=== PATIENT | female | born 1945 | race African-American/Black ===

== ENCOUNTER 2017-05-29 09:25 | Outpatient (CLI) | payer MEDICARE, OTHER ==
--- NOTE | 2017-05-29 11:26 | MMO ---
BILATERAL DIGITAL SCREENING MAMMOGRAMS: Date: 05/29/17 This patient's mammogram was interpreted with the assistance of computer-aided detection. Comparison made with exams of 05/23/16, 11/03/14, and 11/04/13. FINDINGS: There are scattered fibroglandular densities with benign-appearing calcifications. No suspicious mas ses or calcifications are identified. IMPRESSION: BIRADS 2: Benign Finding(s) Annual mammographic screening is recommended. POS: [facility]
== END 2017-05-29 09:26 | disposition home or self-care (01) ==
LOC: MAMMO 09:25
PROVIDERS: ATTEND Internal Medicine
DX: Z12.31 Encounter for screening mammogram for malignant neoplasm of breast (principal)
CPT/HCPCS: 77067; G0202

== ENCOUNTER 2017-11-14 05:11 | Emergency (ER) | payer MEDICARE, OTHER ==
[2017-11-14 06:02] LABS: #Eosinphils 0.2 thou/uL (0.0-0.7); #Lymphocytes 1.8 thou/uL (1.20-3.40); #Monocytes 0.6 thou/uL (0.11-0.59); #Neutrophils 2.8 thou/uL (1.40-6.50); %Basophils 0.5 % (0.0-1.0); %Eosinophils 3.7 % (0.0-10.0); %Lymphocytes 32.5 % (21.0-51.0); %Monocytes 11.5 % (0.0-10.0); %Neutrophils 51.8 % (42.0-75.0); Hemoglobin 13.7 g/dL (12.0-16.0); Mean Corpuscular HGB CONC 33.3 g/dL (32.0-36.0); Mean Corpuscular Hemoglobin 32.3 pg (27.0-31.0); Mean Corpuscular Volume 96.9 fl (81.0-99.0); Platelet Count 250 thou/uL (130-400); RBC Distribution Width 13.1 % (11.5-14.5); Red Blood Cell (RBC) Count 4.23 mill/uL (4.20-5.40); White Blood Cell (WBC) Count 5.4 thou/uL (4.8-10.8)
[2017-11-14 06:30] LABS: ALT (SGPT) 11 U/L (8-55); AST (SGOT) 13 U/L (5-34); Albumin 3.8 g/dL (3.4-4.8); Alkaline Phosphatase 121 U/L (40-150); Anion Gap 10 mmol/L (10-20); BUN (Urea Nitrogen) 30 mg/dL (9.8-20.1); Bilirubin, Total 0.3 mg/dL (0.2-1.2); Calc. Creatinine Clearance 0 mL/min (70-130); Calcium 9.4 mg/dL (7.8-10.44); Carbon Dioxide 25 mmol/L (23-31); Chloride 107 mmol/L (98-107); Estimated GFR-MDRD 80; Globulin 3.1 g/dL (2.4-3.5); Glucose 97 mg/dL (80-115); Potassium 4.3 mmol/L (3.5-5.1); Protein, Total 6.9 g/dL (6.0-8.3); Sodium 138 mmol/L (136-145)
[2017-11-14 06:34] LABS: CKMB 0.6 ng/mL (0-6.6); Troponin I Less than 0.010 ng/mL (< 0.028)
[2017-11-14 07:07] LABS: CK (CPK) 92 U/L (29-168); Lipase 25 U/L (8-78)
[2017-11-14] MEDS ORDERED: Nitroglycerin 2% Ointment 1 INCH/1 GM Packet ONE (07:30)
--- NOTE | 2017-11-14 08:05 | RAD ---
1 VIEW CHEST: Date: 11/14/17 HISTORY: Dyspnea. COMPARISON: None. FINDINGS: Normal cardiac silhouette. Pulmonary vessels and hilum are normal. Costophrenic angles are clear. No consolidation or mass. No pneumothorax or osseous abnormalities. IMPRESSION: No acute cardiopulmonary process. POS: OFF
--- NOTE | 2017-11-14 08:06 | ULT ---
PRELIMINARY REPORT/[facility]/EMERGENTY AFTER-HOURS PROCEDURE US Duplex Left Lower Extremity Veins EXAM DATE/TIME: Exam ordered 11/14/2017 6:03 AM CLINICAL HISTORY: 72 years old, female; Pain and signs and symptoms; Edema, localized; Lower extremity, left; Leg, lowe r TECHNIQUE: Real-time duplex ultrasound scan of the left lower extremity veins integrating B-mode two dimensional vascular structure, Doppler spectral analysis, color flow Doppler imaging and compression. COMPARISON: No relevant prior studies available. FINDINGS: Deep veins: Normal. No DVT in the visualized common femoral, femoral, proximal deep femoral, poplitea l or calf veins. The veins demonstrate normal color flow, are normally compressible, with normal phas ic flow and/or augmentation response. Superficial veins: Normal. No thrombus in the visualized great saphenous vein. Soft tissues: There is a complex posterior LEFT knee fluid collection measuring approximately 5.3 x 1 .5 x 2.3 cm possibly representing a Vega's cyst. IMPRESSION: 1. No LEFT lower extremity acute DVT. 2. There is a complex posterior LEFT knee fluid collection measuring approximately 5.3 x 1.5 x 2.3 cm possibly representing a Vega's cyst. Thank you for allowing us to participate in the care of your patient. Dictated and Authenticated by: Shashi Edwards MD 11/14/2017 6:45 AM Central Time ([place] & [place]) ULTRASOUND WITH DOPPLER DUPLEX VENOUS LOWER EXTREMITY LEFT: HISTORY: 72-year-old female with left lower extremity edema. TECHNIQUE: Color flow Doppler, spectral waveform analysis of pulsed Doppler, and cagle-scale imaging with eliz fela and augmentation, were used to evaluate the left common femoral, femoral, popliteal, posterior t ibial, and superficial femoral, veins; and the proximal portions of the profunda femoral and greater saphenous, veins. FINDINGS: There is normal compressibility, demonstration of blood flow by color Doppler and pulsed Doppler, and response to augmentation, in all interrogated veins. There is a 5.5 x 1.5 x 2.5 cm heterogeneously hypoechoic mass in the posterior aspect of the left kne e. 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 IMPRESSION: 1. No deep vein thrombosis in the left lower extremity. 2. 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 Synovial sarcoma is uncommon and therefo re much less likely, but further evaluation with MRI of the knee with and without contrast is recomme nded (unless there are contraindications to MRI). Code QA Code T jn POS: [facility]
[2017-11-14] MEDS ORDERED: Acetaminophen 325 MG TAB ONE (10:37)
[2017-11-14 12:15] LABS: Troponin I Less than 0.010 ng/mL (< 0.028)
[2017-11-14] MEDS ORDERED: Metoclopramide 10 MG/10 ML UDCUP ONE (12:17)
[2017-11-14] MEDS ORDERED: Fentanyl 100 MCG/2 ML VIAL ONE (14:29)
== END 2017-11-14 14:46 | disposition short-term general hospital (02) ==
LOC: ERS 05:11
DX: I20.0 Unstable angina (principal); I10 Essential (primary) hypertension; E78.5 Hyperlipidemia, unspecified; G43.909 Migraine, unspecified, not intractable, without status migrainosus; Z79.899 Other long term (current) drug therapy
CPT/HCPCS: 36415; 71045; 80053; 82553; 83690; 83880; 84484; 85025; 85379; 93005; 96361; 96374; J3010

== ENCOUNTER 2018-04-21 11:23 | Observation (INO) | payer MEDICARE, OTHER ==
[2018-04-21 12:19] LABS: #Eosinphils 0.5 thou/uL (0.0-0.7); #Lymphocytes 2.2 thou/uL (1.20-3.40); #Monocytes 0.7 thou/uL (0.11-0.59); #Neutrophils 3.6 thou/uL (1.40-6.50); %Basophils 0.6 % (0.0-1.0); %Eosinophils 6.8 % (0.0-10.0); %Lymphocytes 30.7 % (21.0-51.0); %Monocytes 10.4 % (0.0-10.0); %Neutrophils 51.6 % (42.0-75.0); Mean Corpuscular HGB CONC 33.3 g/dL (32.0-36.0); Mean Corpuscular Hemoglobin 32.8 pg (27.0-31.0); Mean Corpuscular Volume 98.3 fL (78.0-98.0); Mean Platelet Volume 8.1 fL (7.4-10.4); Platelet Count 158 thou/uL (130-400); RBC Distribution Width 13.6 % (11.5-14.5); Red Blood Cell (RBC) Count 4.28 mill/uL (4.20-5.40)
[2018-04-21 12:38] LABS: ALT (SGPT) 11 U/L (8-55); AST (SGOT) 17 U/L (5-34); Albumin 3.8 g/dL (3.4-4.8); Alkaline Phosphatase 88 U/L (40-150); Anion Gap 13 mmol/L (10-20); BUN (Urea Nitrogen) 22 mg/dL (9.8-20.1); Bilirubin, Total 0.3 mg/dL (0.2-1.2); CK (CPK) 96 U/L (29-168); Calc. Creatinine Clearance 0 mL/min (70-130); Calcium 9.2 mg/dL (7.8-10.44); Carbon Dioxide 22 mmol/L (23-31); Chloride 109 mmol/L (98-107); Estimated GFR-MDRD 66; Globulin 3.2 g/dL (2.4-3.5); Glucose 101 mg/dL (80-115); Lipase 24 U/L (8-78); Potassium 3.7 mmol/L (3.5-5.1); Sodium 140 mmol/L (136-145)
[2018-04-21 12:42] LABS: CKMB 0.7 ng/mL (0-6.6); Troponin I Less than 0.010 ng/mL (< 0.028)
[2018-04-21] MEDS ORDERED: Nitroglycerin 2% Ointment 1 INCH/1 GM Packet ONE (13:28)
--- NOTE | 2018-04-21 13:43 | RAD ---
PORTABLE AP CHEST: Date: 04/21/18 HISTORY: Back pain and left arm pain. Diaphoresis. COMPARISON: 11/14/17. FINDINGS: Cardiac silhouette and pulmonary vasculature are within normal limits. Again noted is mild blunting o f the left lateral costophrenic angle, which may be related to mild pleural and parenchymal scarring. Lungs are otherwise clear. There is minimal symmetric biapical pleural thickening present. There has been no interval change from the prior study. IMPRESSION: 1. No acute cardiopulmonary process. 2. Probable mild pleural and parenchymal scarring left lung base. POS: [facility]
[2018-04-21] MEDS ORDERED: ADENOSINE 60 MG/20 ML VIAL ONE (14:58)
[2018-04-21 15:11] VITALS: BMI 31.4
[2018-04-21 15:34] LABS: Troponin I Less than 0.010 ng/mL (< 0.028)
[2018-04-21] MEDS ORDERED: Acetaminophen 325 MG TAB PO PRN (15:34)
[2018-04-21] MEDS ORDERED: Enoxaparin Sodium 40 MG/0.4 ML SYRINGE SC SCH (15:34)
[2018-04-21] MEDS ORDERED: Acetaminophen 650 MG Suppository PR PRN (15:34)
[2018-04-21] MEDS ORDERED: HYDROcodone/Acetaminophen 5/325 mg Tablet PO PRN (15:34)
[2018-04-21 16:01] LABS: CKMB 0.7 ng/mL (0-6.6)
[2018-04-21] MEDS ORDERED: Fioricet 325/50/40 mg Tablet PO PRN (19:35)
[2018-04-21] MEDS ORDERED: Divalproex Sodium 250 MG (DR) TAB PO SCH (21:00)
[2018-04-21] MEDS ORDERED: Atorvastatin Calcium 10 MG TAB PO SCH (21:00)
[2018-04-21] MEDS: Famotidine 20 MG TAB PO SCH (21:00)
[2018-04-21] MEDS: Nitroglycerin 2% Ointment 1 INCH/1 GM Packet TOP SCH (21:02)
[2018-04-22 00:09] LABS: CKMB 0.6 ng/mL (0-6.6); Troponin I Less than 0.010 ng/mL (< 0.028)
[2018-04-22] MEDS: Nitroglycerin 2% Ointment 1 INCH/1 GM Packet TOP SCH ×2 (04:22→14:21)
[2018-04-22 05:11] LABS: #Basophils 0.1 thou/uL (0.0-0.2); #Eosinphils 0.6 thou/uL (0.0-0.7); #Lymphocytes 2.6 thou/uL (1.20-3.40); #Monocytes 0.6 thou/uL (0.11-0.59); #Neutrophils 2.5 thou/uL (1.40-6.50); %Basophils 0.8 % (0.0-1.0); %Eosinophils 9.5 % (0.0-10.0); %Lymphocytes 40.4 % (21.0-51.0); %Monocytes 9.9 % (0.0-10.0); %Neutrophils 39.4 % (42.0-75.0); Hemoglobin 13.5 g/dL (12.0-16.0); Mean Corpuscular HGB CONC 32.5 g/dL (32.0-36.0); Mean Corpuscular Volume 98.4 fL (78.0-98.0); Mean Platelet Volume 8.2 fL (7.4-10.4); Platelet Count 165 thou/uL (130-400); RBC Distribution Width 13.5 % (11.5-14.5); Red Blood Cell (RBC) Count 4.21 mill/uL (4.20-5.40); White Blood Cell (WBC) Count 6.4 thou/uL (4.8-10.8)
[2018-04-22 05:28] LABS: Anion Gap 13 mmol/L (10-20); BUN (Urea Nitrogen) 20 mg/dL (9.8-20.1); Calc. Creatinine Clearance 66 mL/min (70-130); Calcium 8.9 mg/dL (7.8-10.44); Carbon Dioxide 23 mmol/L (23-31); Cardiac Risk 3.6 (Less than 4.5); Chloride 109 mmol/L (98-107); Cholesterol 155 mg/dl (< 200 Desired); Estimated GFR-MDRD 70; Glucose 96 mg/dL (80-115); HDL Cholesterol 43 mg/dL (>60 Neg Risk); LDL Cholesterol, Calculated 80 mg/dL; Magnesium 2.2 mg/dL (1.6-2.6); Potassium 3.9 mmol/L (3.5-5.1); Sodium 141 mmol/L (136-145); Triglycerides 158 mg/dL (Less than 150)
[2018-04-22] MEDS ORDERED: Levothyroxine Sodium 112 MCG TAB PO SCH (06:00)
[2018-04-22] MEDS ORDERED: Amlodipine 10 MG TAB PO SCH (09:00)
[2018-04-22] MEDS: Famotidine 20 MG TAB PO SCH (09:16)
[2018-04-22 12:54] VITALS: BP 137/62; TEMP 98.2
--- NOTE | 2018-04-22 15:22 | NM ---
MYOCARDIAL PERFUSION SCAN WITH SPECT IMAGIN04/22/18 HISTORY: Chest pain. The examination is performed using 32.1 millicuries 99m technetium Sestamibi on stress and 10.1 yi curies on resting images. This shows fairly normal distribution of the radiopharmaceutical. No signs of ischemic or scar. WALL MOTION: There is symmetric contractility to the ventricle. LEFT VENTRICULAR EJECTION FRACTION: The calculated left ventricular ejection fraction is 80%. IMPRESSION: Unremarkable myocardial perfusion scan. POS: [facility]
--- NOTE | 2018-04-23 12:44 | SS ---
DATE OF ADMISSION: 04/21/2018 DATE OF DISCHARGE: 04/22/2018 PRIMARY CARE PHYSICIAN: Colette Park M.D. DISCHARGE DIAGNOSES: 1. Chest pain. 2. Hypertension. 3. Hypothyroidism, surgical. 4. Hyperlipidemia. 5. Migraine headaches. 6. Essential hypertension. CONSULTATIONS: None. PROCEDURES: Cardiolite stress test 04/22/2018 showed negative EKG and negative images for reversible or induced ischemia. HISTORY AND PHYSICAL: Ms. Valente is a 73-year-old female with a history of hypothyroidism, hyperten fela, history of lung mass, seizure disorder and hyperlipidemia who presents to the Emergency Departm ent for chest pain. She describes the pain as a sharp stabbing pain in the center of her chest, wors e with deep inspiration and palpation that radiates up into her bilateral arms and at the left side o f her neck. She is not having shortness of breath, diaphoresis or nausea. She never had a cardiac w orkup or heart catheterization. When she presented to the Emergency Department, her labs were negative. She did have HEART score андрей t was elevated for risk and so we were called for admission. On my evaluation, the patient had no further chest pain. She is feeling much better and had no compl aints. PAST MEDICAL HISTORY: 1. Hypertension. 2. Hyperlipidemia. 3. Migraines. 4. Hypothyroidism. 5. History of lung mass. PAST SURGICAL HISTORY: Includes, 1. Thyroidectomy. 2. Foot surgery. 3. Lung mass removal. SOCIAL HISTORY: Negative for habits x3. ALLERGIES: NKDA. FAMILY HISTORY: Negative for clotting or bleeding disorder. No immune dysfunction. REVIEW OF SYSTEMS: All systems reviewed and negative except as stated per HPI. PHYSICAL EXAMINATION: VITAL SIGNS: Temperature in the Emergency Department was 98.3 with a pulse of 79, blood pressure 130 /74, respiratory rate 18, satting 97% on room air. GENERAL: She is awake. She is alert. She is oriented x3. She is a well-developed, well-nourished, elderly female, who appears to be in no acute distress. HEENT: Normocephalic, atraumatic. Pupils equal, round and reactive to light bilaterally. Mucous me mbranes are moist. There are no visible lesions. No thrush. NECK: Supple. There is no lymphadenopathy, JVD or thyromegaly. Normal carotid upstrokes. There ar e no bruits. CHEST: Lungs are clear. She has good air movement. Symmetrical chest excursion. No wheezes, no ra les, no rhonchi. She has had tenderness in the parasternal area to palpation. ABDOMEN: Soft. It is nontender and nondistended. Good bowel sounds in all 4 quadrants. There is n o rebound, rigidity or guarding. EXTREMITIES: Show no signs of clubbing and no edema. She has good range of motion. MUSCULOSKELETAL: Normal to inspection. Large joints appear normal. There is no inflammation or pal pable effusions. SKIN: Warm, moist and well perfused. There are no rashes and no lesions. NEUROLOGIC: Cranial nerves II-XII are grossly intact. She has no focal neurologic deficits and norm al speech pattern. HOSPITAL COURSE: The patient was seen and examined by me on admission in the Emergency Department. LABORATORY DATA: Showed a CBC to be normal and a CMP to be normal. Her CK-MB was normal at 0.7. Tr oponin I was undetectable. Second set showed her troponin I to be still undetectable and CK-MB stabl e at 0.7. The patient was placed in observation overnight. Serial cardiac biomarkers were obtained that were a ll negative and undetectable. She was subjected to a Cardiolite stress test the next morning that wa s unremarkable and she was subsequently discharged home with outpatient followup. The patient was seen and examined on the day of discharge also. Disposition and discharge plan was discussed with the patient [id number] at the bedside. DISCHARGE MEDICATIONS: New medications, none. Home medications to continue, 1. Divalproex 250 mg p.o. at bedtime. 2. Cholecalciferol 1000 mg daily. 3. Levothyroxine 112 mcg daily. 4. Fioricet 1 tablet every 6 hours as needed. 5. Lipitor 10 mg p.o. at bedtime. 6. Amlodipine 10 mg daily. DISCHARGE ACTIVITY: As tolerated per cardiopulmonary limits. DISCHARGE DIET: Heart healthy recommended. DISCHARGE CONDITION: Stable. DISPOSITION: Discharged home via private vehicle. FOLLOWUP: With her own primary care physician within a week.
--- NOTE | 2018-04-25 12:25 | EKG ---
Test Reason : Blood Pressure : / mmHG Vent. Rate : 079 BPM Atrial Rate : 079 BPM P-R Int : 168 ms QRS Dur : 084 ms QT Int : 372 ms P-R-T Axes : 049 -05 023 degrees QTc Int : 426 ms Normal sinus rhythm Voltage criteria for left ventricular hypertrophy Abnormal ECG Confirmed by MOHINDER HENDERSON ([id number]), acquisition editor ARDEN HERNANDEZ ([id number]) on 04/25/2018 12:24:32 PM Referred By: Confirmed By:MOHINDER HENDERSON
--- NOTE | 2018-05-25 08:33 | STRESS ---
Acquisition Time: 2018-04-22 11:20:52 Total Exercise Time: 00:04:00 Test Indications: CHEST PAIN Medications: Protocol: ADENOSINE Max HR: 088 BPM 58% of Pred: 150 BPM Max BP: 136/070 mmHG Max Work Load: 1.0 METS RESTING ECG: NORMAL SINUS RHYTHM AT 62 BPM SYMPTOMS: CHEST PAIN NORMAL BP RESPONSE ECTOPY: NONE ECG STRESS: NO SIGNIFICANT CHANGES INTERPRETATION: NEGATIVE ECG/AWAIT NUCLEAR IMAGES FOR DEFINITIVE DIAGNOSIS Confirmed by JORDI KELLER ([id number]) on 05/25/2018 8:32:43 AM Referred By: MD Mary STAHL Confirmed By:JORDI KELLER
== END 2018-04-22 15:57 | disposition home or self-care (01) ==
LOC: ERS 11:23 → 2SW 14:02
PROVIDERS: ADMIT Internal Medicine Infectious Disease; ATTEND Internal Medicine Infectious Disease
DX: R07.9 Chest pain, unspecified (principal); I10 Essential (primary) hypertension; E03.9 Hypothyroidism, unspecified; E78.5 Hyperlipidemia, unspecified; G43.909 Migraine, unspecified, not intractable, without status migrainosus; Z79.899 Other long term (current) drug therapy
CPT/HCPCS: 71045; 78452; 80048; 80053; 80061; 82550; 82553 ×2; 83690; 83735; 84484 ×2; 85025 ×2; 93005; 93017; 96372; 99285; A9500; G0378 ×2; 36415; J0153; J1650

== ENCOUNTER 2018-06-01 09:37 | Outpatient (CLI) | payer MEDICARE | END 2018-06-01 09:38 | disposition home or self-care (01) | LOC: BICMAMMO 09:37 | PROVIDERS: ATTEND Internal Medicine | DX: Z12.31 Encounter for screening mammogram for malignant neoplasm of breast (principal) | CPT/HCPCS: 77063; 77067 ==

== ENCOUNTER 2019-06-10 13:34 | Outpatient (CLI) | payer MEDICARE, OTHER ==
--- NOTE | 2019-06-10 15:03 | MMO ---
Bilateral MAMMO Bilat Screen [facility]. CLINICAL HISTORY: Patient is 74 years old and is seen for screening. The patient has no family history of breast cancer. The patient has no personal history of cancer. VIEWS: The views performed were: bilateral craniocaudal with tomosynthesis and bilateral mediolateral oblique with tomosynthesis. FILMS COMPARED: The present examination has been compared to prior imaging studies performed at [facility] on 05/23/2016, 05/29/2017 and 06/01/2018. This study has been interpreted with the assistance of computer-aided detection. MAMMOGRAM FINDINGS: There are scattered fibroglandular densities. There are no suspicious masses, suspicious calcifications, or new areas of architectural distortion. IMPRESSION: THERE IS NO MAMMOGRAPHIC EVIDENCE OF MALIGNANCY. A ROUTINE FOLLOW-UP MAMMOGRAM IN 1 YEAR IS RECOMMENDED. THE RESULTS OF THIS EXAM WERE SENT TO THE PATIENT. ACR BI-RADS Category 1 - Negative MAMMOGRAPHY NOTE: 1. A negative mammogram report should not delay a biopsy if a dominant of clinically suspicious mass is present. 2. Approximately 10% to 15% of breast cancers are not detected by mammography. 3. Adenosis and dense breasts may obscure an underlying neoplasm. Reported by: Elis DAMIAN Electonically Signed: [id number]
== END 2019-06-10 13:35 | disposition home or self-care (01) ==
LOC: BICMAMMO 13:34
PROVIDERS: ATTEND Internal Medicine
DX: Z12.31 Encounter for screening mammogram for malignant neoplasm of breast (principal)
CPT/HCPCS: 77063; 77067

== ENCOUNTER 2020-06-12 09:12 | Outpatient (CLI) | payer MEDICARE, OTHER ==
--- NOTE | 2020-06-12 11:56 | MMO ---
Bilateral MAMMO Bilat Screen [facility]. CLINICAL HISTORY: Patient is 75 years old and is seen for screening. The patient has no family history of breast cancer. The patient has no personal history of cancer. VIEWS: The views performed were: bilateral craniocaudal with tomosynthesis and bilateral mediolateral oblique with tomosynthesis. FILMS COMPARED: The present examination has been compared to prior imaging studies performed at [facility] on 05/23/2016, 05/29/2017, 06/01/2018 and 06/10/2019. This study has been interpreted with the assistance of computer-aided detection. MAMMOGRAM FINDINGS: There are scattered fibroglandular densities. There are stable benign appearing calcifications seen in both breasts. There are no suspicious masses, suspicious calcifications, or new areas of architectural distortion. IMPRESSION: THERE IS NO MAMMOGRAPHIC EVIDENCE OF MALIGNANCY. A ROUTINE FOLLOW-UP MAMMOGRAM IN 1 YEAR IS RECOMMENDED. THE RESULTS OF THIS EXAM WERE SENT TO THE PATIENT. ACR BI-RADS Category 2 - Benign finding MAMMOGRAPHY NOTE: 1. A negative mammogram report should not delay a biopsy if a dominant of clinically suspicious mass is present. 2. Approximately 10% to 15% of breast cancers are not detected by mammography. 3. Adenosis and dense breasts may obscure an underlying neoplasm. Reported by: GIOVANNA BISHOP MD Electonically Signed: [id number]
== END 2020-06-12 09:13 | disposition home or self-care (01) ==
LOC: BICMAMMO 09:12
PROVIDERS: ATTEND Internal Medicine
DX: Z12.31 Encounter for screening mammogram for malignant neoplasm of breast (principal)
CPT/HCPCS: 77063; 77067

== ENCOUNTER 2021-06-14 10:39 | Outpatient (CLI) | payer MEDICARE, OTHER | END 2021-06-14 10:40 | disposition home or self-care (01) | LOC: BICMAMMO 10:39 | PROVIDERS: ATTEND Internal Medicine | DX: Z12.31 Encounter for screening mammogram for malignant neoplasm of breast (principal); R92.1 Mammographic calcification found on diagnostic imaging of breast | CPT/HCPCS: 77063; 77067 ==

== ENCOUNTER 2021-06-19 08:36 | Outpatient (CLI) | payer MEDICARE, OTHER | END 2021-06-19 08:37 | disposition home or self-care (01) | LOC: BICMAMMO 08:36 | PROVIDERS: ATTEND Internal Medicine | DX: R92.1 Mammographic calcification found on diagnostic imaging of breast (principal) | CPT/HCPCS: 77065; G0279 ==

== ENCOUNTER 2021-07-30 14:20 | Outpatient (CLI) | payer MEDICARE, OTHER ==
[2021-07-30 17:45] LABS: #Basophils 0.1 10x3/uL (0.0-0.2); #Eosinphils 0.2 10x3/uL (0.0-0.5); #Monocytes 0.5 10x3/uL (0.0-1.1); #Neutrophils 3.2 10x3/uL (1.5-8.4); %Basophils 0.8 % (0.0-2.0); %Eosinophils 3.8 % (0.0-6.0); %Lymphocytes 36.5 % (18.0-47.0); %Monocytes 7.6 % (0.0-10.0); Hemoglobin 13.6 g/dL (12.0-15.5); Mean Corpuscular HGB CONC 32.6 g/dL (32.0-36.0); Mean Corpuscular Hemoglobin 31.9 pg (27.0-33.0); Mean Corpuscular Volume 97.7 fl (81.6-98.3); Mean Platelet Volume 10.9 fl (7.4-10.4); Platelet Count 154 10x3/uL (150-450); RBC Distribution Width 15.2 % (11.5-14.5); Red Blood Cell (RBC) Count 4.27 10x6/uL (3.90-5.03); White Blood Cell (WBC) Count 6.3 10x3/uL (3.5-10.5)
[2021-07-30 18:04] LABS: Anion Gap 12 mmol/L (10-20); BUN (Urea Nitrogen) 26 mg/dL (9.8-20.1); Calc. Creatinine Clearance 0 mL/min (70-130); Calcium 9.3 mg/dL (7.8-10.44); Carbon Dioxide 26 mmol/L (23-31); Chloride 106 mmol/L (98-107); Glucose 83 mg/dL (83-110); Potassium 4.3 mmol/L (3.5-5.1); Sodium 140 mmol/L (136-145)
[2021-07-31 02:55] LABS: SARS-CoV-2 PCR by NAA Not Detected (NotDetected)
== END 2021-07-30 14:21 | disposition home or self-care (01) ==
LOC: LABBT 14:20
PROVIDERS: ATTEND Specialist
DX: Z01.818 Encounter for other preprocedural examination (principal); Z20.822 Contact with and (suspected) exposure to COVID-19; D05.10 Intraductal carcinoma in situ of unspecified breast
CPT/HCPCS: 80048; 85025; U0003; U0005; 93005; 93010

== ENCOUNTER 2021-08-02 07:12 | Day surgery (SDC) | payer MEDICARE, OTHER ==
[2021-07-31 12:04] VITALS: BMI 29.8
[2021-08-02] MEDS ORDERED: ceFAZolin 2 GM/DEX 5% 100 ML BAG ONE (08:58)
[2021-08-02] MEDS ORDERED: Acetaminophen 500 MG TAB ONE (08:58)
[2021-08-02] MEDS ORDERED: Ketorolac Tromethamine 30 MG/ML VIAL ONE (08:58)
[2021-08-02] MEDS ORDERED: EPINEPHrine 1 MG/ML AMP ONE (10:45)
[2021-08-02] MEDS ORDERED: Bupivacaine PF 0.5% 30 ML VIAL ONE (10:45)
[2021-08-02] MEDS ORDERED: Fentanyl 100 MCG/2 ML VIAL ONE (10:46)
[2021-08-02] MEDS ORDERED: ePHEDrine Sulfate 50 MG/10 ML VIAL ONE (10:48)
[2021-08-02] MEDS ORDERED: PROPOFOL 200 MG/20 ML VIAL ONE (11:04)
[2021-08-02] MEDS ORDERED: ePHEDrine 50 MG/ML VIAL ONE (11:04)
[2021-08-02] MEDS ORDERED: Lidocaine 1% PF 5 ML VIAL ONE (11:04)
[2021-08-02] MEDS ORDERED: Ondansetron PF 4 MG/2 ML Vial ONE (11:04)
[2021-08-02] MEDS ORDERED: Dexamethasone 20 MG/5 ML VIAL ONE (11:04)
== END 2021-08-02 13:45 | disposition home or self-care (01) ==
LOC: SDC 07:12
PROVIDERS: ATTEND Specialist
PROC: 0HBT0ZZ Excision of Right Breast, Open Approach (ICD-10-PCS; principal; 2021-08-02)
DX: D05.11 Intraductal carcinoma in situ of right breast (principal); I10 Essential (primary) hypertension; Z79.890 Hormone replacement therapy; Z79.899 Other long term (current) drug therapy; Z88.7 Allergy status to serum and vaccine
CPT/HCPCS: 19281; 76098; 88307; 88341; 88342; J0171; J1100; J1885; J2405; J2704; J3010; J3490; S0020

== ENCOUNTER 2022-07-25 08:52 | Outpatient (CLI) | payer MEDICARE, OTHER | END 2022-07-25 08:53 | disposition home or self-care (01) | LOC: BICMAMMO 08:52 | PROVIDERS: ATTEND Specialist | DX: D05.10 Intraductal carcinoma in situ of unspecified breast (principal) | CPT/HCPCS: 77066; G0279 ==

== ENCOUNTER 2022-11-18 08:59 | Outpatient (CLI) | payer OTHER ==
[2022-11-18] MEDS ORDERED: Magnevist 469MG/ML 20 ML VIAL ONE (11:31)
== END 2022-11-18 09:00 | disposition home or self-care (01) ==
LOC: MRI 08:59
PROVIDERS: ATTEND Psychiatry & Neurology Neurology
DX: G43.909 Migraine, unspecified, not intractable, without status migrainosus (principal); I67.82 Cerebral ischemia
CPT/HCPCS: 70553; A9579

== ENCOUNTER 2023-10-02 08:38 | Outpatient (CLI) | payer MEDICARE, OTHER | END 2023-10-02 08:39 | disposition home or self-care (01) | LOC: BICMAMMO 08:38 | PROVIDERS: ATTEND Internal Medicine | DX: Z08 Encounter for follow-up examination after completed treatment for malignant neoplasm (principal); Z85.3 Personal history of malignant neoplasm of breast | CPT/HCPCS: 77066; G0279 ==